=== PATIENT | male | born 2005 | race Hispanic/Latino ===

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

== ENCOUNTER 2025-05-16 15:58 | Emergency (ER) | payer SELFPAY ==
[~2025-05-16] VITALS: Ht 172.7 cm; Wt 64.4 kg
[~2025-05-16 15:58] MED LIST changes: +OXYC-38 PO
[2025-05-16 16:03] VITALS: BP 125/64; PULSE 99; RESP 16; TEMP 98; O2SAT 97
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
== END 2025-05-16 16:50 | disposition home or self-care (01) ==
LOC: EDH 15:58
DX: M54.50 Low back pain, unspecified (principal); Z88.0 Allergy status to penicillin; Z90.49 Acquired absence of other specified parts of digestive tract; V86.56XA Driver of dirt bike or motor/cross bike injured in nontraffic accident, initial encounter; Y93.89 Activity, other specified; Y92.89 Other specified places as the place of occurrence of the external cause; Y99.8 Other external cause status
CPT/HCPCS: 72100; 99283

== ENCOUNTER 2025-05-16 18:16 | Inpatient (IN) | payer SELFPAY ==
[~2025-05-16] VITALS: Ht 172.7 cm; Wt 62.7 kg
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
[2025-05-16 18:56] LABS: IMMATURE GRANULOCYTE ABSOLUTE 0.02 K/uL (0-1); NUCLEATED RED BLOOD CELLS 0.0 % (0.0-0.19); PLATELET COUNT (AUTO) 230 K/uL (130-400); RED BLOOD CELL COUNT(AUTO) 5.26 MIL/uL (4.50-6.20); RED CELL DISTRIBUTION WIDTH 12.1 % (11.0-15.5); WHITE BLOOD COUNT (AUTO) 9.0 K/uL (4.8-10.8)
[2025-05-16 19:12] LABS: CREATININE 0.8 mg/dL (0.5-1.3); GLOMERULAR FILTR. RATE CALC 131.0 mL/min (>90); GLUCOSE,RANDOM 85.0 mg/dL (70-105); SODIUM SERUM 142.0 mmol/L (136-145); UREA NITROGEN, BLOOD 15.0 mg/dL (7-18)
--- NOTE | 2025-05-16 20:08 | HMCIMG ---
EXAM: CR right ankle, 3 View. CLINICAL HISTORY: PAIN COMPARISON: None provided. FINDINGS: BONES: No acute fracture or aggressive appearing osseous lesion. JOINTS: The joint spaces appear within normal limits. No dislocation. No radiographic evidence of a joint effusion. SOFT TISSUES: The soft tissues are unremarkable. Small radiopacity overlying the medial, plantar soft tissues is presumed to be external. IMPRESSION: No acute osseous abnormality. /[place]
[2025-05-17] VITALS (7 sets, daily range): BP systolic 96–127; BP diastolic 57–75; PULSE 56–75; RESP 16–18; TEMP 97.9–98.5; O2SAT 97
--- NOTE | 2025-05-17 00:14 | NUR ---
REPORT HANDED OVER TO POLLO
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
--- NOTE | 2025-05-17 11:29 | NUR ---
DCP:HOME Pt currently lives at home with his parents. Pt does not have any DME, home health, or provider services. Pt states that he is able to complete ADLs independently. 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 SW provided him [facility] resources [facility]. At NH pt will return home and family can assist with transportation. Addendum: 05/17/25 at 1131 by ZAC SHAY SS Amended: Links added.
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
--- NOTE | 2025-05-17 18:00 | NUR ---
DISCHARGE PERIPHERAL IV REMOVED DISCHARGE EDUCATION AND INSTRUCTIONS PROVIDED TO PATIENT AND FAMILY PATIENT AND FAMILY AWARE TO FOLLOW UP WITH PCP IN 3-5 DAYS PATIENT AND FAMILY AWARE TO CONTACT DR. METCALF IF SYMPTOMS WORSEN PATIENT AND FAMILY AWARE TO TAKE WRITTEN PRESCRIPTION TO PREFERRED PHARMACY ALL QUESTIONS ANSWERED.
--- NOTE | 2025-05-17 18:01 | OP ---
Operative Note: DATE OF PROCEDURE: 05/17/25 SURGEON: BENY METCALF MD CERTIFIED WELLNESS PROGRAM COORDINATOR: [] ANESTHESIA: [] General ANESTHESIOLOGIST/SENIOR PRINCIPAL PROCESS ENGINEER: [] PREOPERATIVE DIAGNOSIS: [] Acute cholecystitis POSTOPERATIVE DIAGNOSIS: [] The same SYNOPSIS: [] PROCEDURE: [] Robotic cholecystectomy ESTIMATED BLOOD LOSS: [] Minimal INDICATIONS: [] DESCRIPTION OF PROCEDURE: []With the patient prepped and draped we did a supraumbilical incision. Using direct technique I placed a balloon trocar. Two da Mary trochars were placed in each side of the abdomen under direct vision. A 5 mm trocar was placed in the right lateral side. I then went to the console and the robot was docked. I took all adhesions from the gallbladder and I started dissecting the triangle of [place]. we used firefly to identify the cystic duct and CBD.The cystic duct and the cystic artery were clearly identified and both were double clipped and divided. I took the gallbladder from below using cautery dissection. After the gallbladder was completely removed and adequate hemostasis was obtained I remove all the instruments from the abdomen. I undocked the robot and I came back to the bedside of the patient. I confirm hemostasis suction and irrigate and I placed the gallbladder in a bag. I injected 40 cc of Marcaine 0.25% as an abdominal tap block under direct vision. I injected 20 cc in each side of the abdomen. I took out all the trochars under direct vision and the gallbladder through the supraumbilical incision. I closed the fascia of the supraumbilical incision with a 0 Vicryl [id number]. All incisions were closed with 4-0 Monocryl and Steri- Strips. The patient was transferred stable to the recovery room. BENY METCALF MD May 17, 2025 18:01
== END 2025-05-17 18:05 | disposition home or self-care (01) | DRG 552 ==
LOC: EDH 18:16 → EDHIP 18:17 → 3BH 22:14
PROVIDERS: ADMIT Surgery; ATTEND Surgery
DX: S32.029A Unspecified fracture of second lumbar vertebra, initial encounter for closed fracture (principal); Z87.19 Personal history of other diseases of the digestive system; Z90.49 Acquired absence of other specified parts of digestive tract; Y93.89 Activity, other specified; Y92.89 Other specified places as the place of occurrence of the external cause; Y99.8 Other external cause status; V86.56XA Driver of dirt bike or motor/cross bike injured in nontraffic accident, initial encounter
CPT/HCPCS: 36415; 72040; 73610; 80048; 85025; 96374; 96375; 99285; G0378; J2270; J2405